=== PATIENT | male | born 1980 | race African-American/Black ===

== ENCOUNTER 2018-03-18 15:13 | Emergency (ER) | payer OTHER, SELFPAY ==
[2018-03-18] MEDS ORDERED: Acetaminophen/Codeine 30-300mg Tablet ONE (15:53)
== END 2018-03-18 16:01 | disposition home or self-care (01) ==
LOC: ERS 15:13
DX: K02.9 Dental caries, unspecified (principal); F17.210 Nicotine dependence, cigarettes, uncomplicated
CPT/HCPCS: 99282

== ENCOUNTER 2020-03-24 01:18 | Emergency (ER) | payer OTHER ==
[2020-03-24] MEDS ORDERED: Lidocaine 1% w/Epinephrine 1:100K 20 ML VIAL ONE (02:01)
[2020-03-24] MEDS ORDERED: Acetaminophen 500 MG TAB ONE (03:19)
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
== END 2020-03-24 03:35 | disposition home or self-care (01) ==
LOC: ERS 01:18
DX: S00.81XA Abrasion of other part of head, initial encounter (principal); S40.212A Abrasion of left shoulder, initial encounter; S90.412A Abrasion, left great toe, initial encounter; S90.411A Abrasion, right great toe, initial encounter; F41.9 Anxiety disorder, unspecified; F17.290 Nicotine dependence, other tobacco product, uncomplicated; V86.99XA Unspecified occupant of other special all-terrain or other off-road motor vehicle injured in nontraffic accident, initial encounter
CPT/HCPCS: 70450; 71045; 72125